=== PATIENT | male | born 1990 | race Caucasian/White ===

== ENCOUNTER 2024-03-24 16:06 | Emergency (ER) | payer OTHER, MEDICAID, SELFPAY ==
--- NOTE | ~2024-03-24 | XR_ITS ---
XR lumbar spine min 4V 03/24/2024 17:23 Indication: Back pain after work injury Procedure: 5 views lumbar spine Comparison: No prior studies for comparison. Findings: There is mild levoscoliosis centered at L2. Vertebral body heights are maintained. No acute fracture or traumatic malalignment. There is mild disc narrowing at L2-3, L3-4 and L5-S1. No evidenc e for spondylolisthesis. Mild facet hypertrophy at L5-S1. Sacral foramen are symmetric. Impression: 1: Mild lumbar spondylosis. Reviewed, dictated and finalized at location A. Impression: 1: Mild lumbar spondylosis.
--- NOTE | ~2024-03-24 | XR_ITS ---
XR thoracic spine 3V 03/24/2024 17:23 Indication: Back pain after work injury Procedure: 3 views thoracic spine Comparison: No prior studies for comparison. Findings: Vertebral body heights are maintained. No fracture, subluxation or dislocation. Pedicles in tact. No paraspinal soft tissue abnormality. Surrounding osseous structures within normal limits. Impression: 1: No acute abnormality of the thoracic spine. Reviewed, dictated and finalized at location A. Impression: 1: No acute abnormality of the thoracic spine.
[2024-03-24 16:10] VITALS: BP 136/82; PULSE 66; RESP 18; TEMP 36.8; O2SAT 99
--- NOTE | 2024-03-24 17:32 | ED.GENADULT ---
HPI - General Adult General Chief complaint: Recheck/Abnormal Lab/Rx Stated complaint: requesting blood work Time Seen by Provider: 03/24/24 16:17 Source: patient Mode of arrival: ambulatory Limitations: no limitations History of Present Illness HPI narrative: Patient is a 33-year-old male who presents the ED with report of low back pain. Patient reports he injured his back last week at work. Was lifting something and felt a pop in his back. Has had pain mostly throughout his left lower back, extending up to his left scapular region. Denies any numbness, saddle anesthesia, bowel or bladder incontinence. He has been taking naproxen for the pain with relief. He followed up with his primary care doctor for this and was referred for outpatient lab and imaging studies. He states he went to [place] today and they were closed, so he presented here to have the labs and imaging performed. States his primary wants the results by Monday. Related Data Allergies Allergy/AdvReac Type Severity Reaction Status Date / Time No Known Allergies Allergy Unverified 09/30/19 18:35 Review of Systems Review of Systems: CONSTITUTIONAL: Denies fever, chills, or sweats. MUSCULOSKELETAL: See HPI. NEUROLOGIC: Denies headache, dizziness, numbness, or weakness. All systems reviewed & are unremarkable except as noted in HPI and below PMFSH Social History Social History Smoking status: Current every day smoker Gender identity (if verbalized by the patient): Male Exam Narrative: GENERAL: Well appearing, well-nourished, non-toxic, in no acute distress. HEAD: Normocephalic, atraumatic. RESPIRATORY: Airway patent, respirations nonlabored. Clear to auscultation bilaterally, no rales, rhonchi, wheezing. CARDIOVASCULAR: Regular rate and rhythm without murmurs, rubs, or gallops. MUSCULOSKELETAL: Moves all extremities. No gross deformities. Tenderness to palpation throughout left lumbosacral region, left paraspinal musculature throughout lumbar region extending slightly up toward scapular region. No palpable deformities. No midline spinal tenderness. Sensation intact. SKIN: Warm, dry, normal color. NEURO: A&O X3. Speech clear. Cranial nerves II-XII grossly intact. Steady gait. No ataxic movements. PSYCHIATRIC: Appropriate mood and affect. Normal interaction. Course Vital Signs Vital signs: Vital Signs Temperature 98.3 F 03/24/24 16:10 Pulse Rate 66 03/24/24 16:10 Respiratory Rate 18 03/24/24 16:10 Blood Pressure 136/82 03/24/24 16:10 Pulse Oximetry 99 03/24/24 16:10 Oxygen Delivery Room Air 03/24/24 16:10 Temperature 98.3 F 03/24/24 16:10 Pulse Rate 66 03/24/24 16:10 Respiratory Rate 18 03/24/24 16:10 Blood Pressure 136/82 03/24/24 16:10 Pulse Oximetry 99 03/24/24 16:10 Oxygen Delivery Room Air 03/24/24 16:10 Medical Decision Making MDM Narrative Medical decision making narrative: Patient presented to ED with lower back pain x1 week after injury at work, wanting lab and imaging drawn today with orders from primary care doctor's office. Patient?s pain is positional and localized to paraspinal muscles without signs of cord compression or cauda equina. Normal neurologic exams. No red flag symptoms. No fever noted and no significant risk factors for osteomyelitis or spinal epidural abscess. No symptoms or signs to suggest pain is referred from abdominal or source. X-ray of thoracic and lumbar spine were obtained and without acute abnormalities. Does show lumbar spondylosis. Updated patient on imaging results. Advised that he will need to go to outpatient lab on Monday for further laboratory testing as these labs are not clinically indicated at this time in the emergency setting. He is in agreement with this plan. He reports relief with naproxen, advised to continue naproxen, Tylenol as needed, continue to follow-
== END 2024-03-24 17:57 | disposition home or self-care (01) ==
PROVIDERS: Emergency Provider Physician Assistant; PCP Emergency Medicine
DX: S39.012A Strain of muscle, fascia and tendon of lower back, initial encounter (principal); F17.210 Nicotine dependence, cigarettes, uncomplicated; X50.0XXA Overexertion from strenuous movement or load, initial encounter
CPT/HCPCS: 72072; 72110; 99283